=== PATIENT | male | born 1985 | race Caucasian/White ===

== ENCOUNTER 2022-04-06 04:08 | Emergency (ER) | payer MEDICAID ==
[~2022-04-06] VITALS: Ht 188 cm; Wt 94.3 kg
[2022-04-06 04:53] LABS: Basophils # (auto) 0.1 10 ^3/uL (0-0.2); Basophils % (auto) 1.3 % (0.0-2.0); Eosinophils # (auto) 0.1 10 ^3/uL (0-0.8); Eosinophils % (auto) 2.1 % (0.0-7.0); Hematocrit 39.3 % (41.0-53.0); Hemoglobin 13.6 g/dL (13.5-17.5); Lymphocytes # (auto) 0.8 10 ^3/uL (0.4-5.4); Lymphocytes % (auto) 16.7 % (10.0-50.0); Mean Corpuscular Hemoglobin 30.2 pg (28.0-32.0); Mean Corpuscular Hgb Conc. 34.5 g/dL (32.0-36.0); Mean Corpuscular Volume 87.4 fL (80.0-100.0); Monocytes # (auto) 0.9 10 ^3/uL (0-1.3); Monocytes % (auto) 17.5 % (0.0-12.0); Neutrophils # (auto) 3.1 10 ^3/uL (1.6-8.6); Neutrophils % (auto) 62.4 % (37.0-80.0); Red Cell Distribution Width 13.1 % (11.8-14.3)
[2022-04-06 05:13] LABS: Albumin 3.1 g/dL (3.4-5.0); BUN/Creatinine Ratio 8.5; Calcium 8.6 mg/dL (8.5-10.1); Potassium 4.3 mmol/L (3.5-5.1)
[2022-04-06 05:16] LABS: Bilirubin, Total 0.3 mg/dL (0.2-1.0); Total Protein 7.3 g/dL (6.4-8.2)
[2022-04-06] MEDS ORDERED: IOHEXOL 350 MG/ML 100ML IJ ONE (06:28)
[2022-04-06] MEDS ORDERED: KETOROLAC TROMETH 30 MG/ML 1ML VIAL IV ONE (07:30)
[2022-04-06 07:45] VITALS: BP 132/95
== END 2022-04-06 08:48 | disposition home or self-care (01) ==
LOC: ER 04:08
DX: J98.19 Other pulmonary collapse (principal); R07.89 Other chest pain; F17.210 Nicotine dependence, cigarettes, uncomplicated; F12.10 Cannabis abuse, uncomplicated
CPT/HCPCS: 36415; 71045; 71275; 80053; 83735; 84484; 85025; 85379; 93005; 96374; 99285; J1885; Q9967